=== PATIENT | male | born 1945 | race Caucasian/White ===

== ENCOUNTER 2020-03-22 14:02 | Inpatient (IN) | payer OTHER ==
[~2020-03-22] VITALS: Ht 170.2 cm; Wt 73.5 kg
--- NOTE | ~2020-03-22 | EEG ---
[facility] [place] [address] ELECTROENCEPHALOGRAM Name: MEKA YOUSIF Room #: 244-P [facility] IN M.R.#: [id number] Admission: 03/22/20 Attend Phys: Nicik Givens MD Discharge: 03/24/20 Date of : 49 Report #: [id number] THIS REPORT FOR: //name// CC: Nicki Michel DATE OF SERVICE: 03/23/2020 FINDINGS: This patient is being evaluated for the possibility of seizure. EEG was done by placing the electrodes by standard 10-20 system of electrode placement. Both referential and sequential montages were used for recording. Background activity in this patient's EEG is about 8-9 Hz and 30 microvolts. This patient went to sleep and that is associated with bilaterally symmetrical sleep spindle and vertex sharp waves. Photic stimulation is unremarkable. Throughout the record, no active epileptiform activity was noticed. IMPRESSION: This patient's EEG does not demonstrate any active epileptiform activity. It is intermixed with some theta range slowing on both sides. That is a nonspecific finding, which can occur with encephalopathy, effect of psychotropic medication, dementia, etc. Clinical correlation is recommended. Thank you very much for this referral. By: [id number] Luis E Cheema MD /nt
[~2020-03-22 14:02] MED LIST: ADULT LOW DOSE81 MG PO; BACTRIM DS TAB1 EACH PO; CIPROFLOXACIN500 M1 PO; MULTI COMPLETE1 EACH PO; PROTONIX40 M2 PO
[2020-03-22 14:35] LABS: URINE BILIRUBIN NEGATIVE (Negative); URINE BLOOD TRACE (Negative); URINE CLARITY CLEAR; URINE COLOR YELLOW; URINE GLUCOSE-RANDOM* NEGATIVE (Negative); URINE KETONES NEGATIVE (Negative); URINE LEUKOCYTES-REFLEX NEGATIVE (Negative); URINE NITRITE-REFLEX NEGATIVE (Negative); URINE PROTEIN (DIPSTICK) NEGATIVE (Negative); URINE SPECIFIC GRAVITY 1.025 (1.005-1.035); URINE UROBILINOGEN 0.2 E.U./dl (0.2-1.0)
[2020-03-22 14:36] LABS: HEMATOCRIT 47.2 % (42.0-52.0); HEMOGLOBIN 15.9 gm/dL (14.0-18.0); MCH 32.7 pg (26.0-34.0); MCHC 33.6 g/dL (28.0-37.0); MCV 97.3 fL (80.0-100.0); RBC 4.85 mil/uL (4.50-6.00); WBC 8.3 thou/uL (4.0-11.0)
[2020-03-22 14:45] LABS: ANION GAP 18 mmol/L (7-16); BUN 10 mg/dL (7-18); CALCIUM 8.9 mg/dL (8.5-10.1); CHLORIDE 103 mmol/L (98-107); CO2 21 mmol/L (21-32); CREATININE 1.4 mg/dL (0.7-1.3); GLUCOSE 196 mg/dL (74-106); POTASSIUM 3.3 mmol/L (3.5-5.1); SODIUM 142 mmol/L (136-145)
[2020-03-22 14:48] LABS: PROTIME 10.6 Seconds (9.3-11.4)
[2020-03-22 14:55] LABS: DIRECT BILIRUBIN < 0.1 mg/dL (<0.1-0.2); LIPASE 132 U/L (73-393); SGOT 22 U/L (15-37); SGPT 20 U/L (30-65); TOTAL BILIRUBIN 0.4 mg/dL (0.2-1.0); TOTAL PROTEIN 7.3 g/dL (6.4-8.2); TROPONIN-I <0.06 ng/mL (<0.06)
--- NOTE | 2020-03-22 15:36 | EKG ---
[facility] [place] [address] ELECTROCARDIOGRAM REPORT Name: MEKA YOUSIF Room #: REG M.R.#: [id number] Admission: 03/22/20 Attend Phys: Discharge: Date of : 49 Report #: [id number] THIS REPORT FOR: cc: Meredith Michel MD, Michelle R. MD Santiago, Patrick MD 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
[2020-03-22 16:21] LABS: AMP/METHAMP Negative (Negative); BARBITURATES Negative (Negative); BENZODIAZEPINES Negative (Negative); COCAINE Negative (Negative); METHADONE Negative (Negative); OPIATES Negative (Negative); PCP Negative (Negative)
[2020-03-22] MEDS ORDERED: FINASTERIDE5 MG PO (19:07)
[2020-03-22] MEDS ORDERED: BETHANECHOL CHL50 MG PO (19:08)
[2020-03-22] MEDS ORDERED: TAMSULOSIN HCL0.4 MG PO (19:14)
--- NOTE | 2020-03-22 19:36 | NUR ---
PT CALL PT'S , SHASHI, AT [phone] OR [phone] WITH ANY UPDATES.
[2020-03-22 21:04] LABS: MAGNESIUM 2.4 mg/dL (1.8-2.4); PHOSPHORUS 3.1 mg/dL (2.5-4.9)
[2020-03-22 21:31] LABS: FOLIC ACID 17.7 ng/mL (8.6-58.9)
[2020-03-23] VITALS (26 sets, daily range): BP systolic 130–154; BP diastolic 69–91
[2020-03-23 07:10] LABS: CALCIUM 8.2 mg/dL (8.5-10.1); CREATININE 1.2 mg/dL (0.7-1.3); POTASSIUM 3.7 mmol/L (3.5-5.1)
--- NOTE | 2020-03-23 07:42 | EKG ---
[facility] [place] [address] ELECTROCARDIOGRAM REPORT Name: MEKA YOUSIF Room #: 1708 ADM IN M.R.#: [id number] Admission: 03/22/20 Attend Phys: Nicki Givens MD Discharge: Date of : 49 Report #: [id number] THIS REPORT FOR: cc: Meredith Michel MD, Michelle R. 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[place] 1945 Requested By: Nicki Givens Order Number: [id number] MD: Lincoln Campbell Measurements Intervals [place] Rate: 63 P: 47 IN: 174 QRS: -67 QRSD: 147 T: -7 QT: 436 QTc: 447 Interpretive Statements Sinus rhythm Probable left atrial enlargement RBBB and LAFB Compared to ECG 03/22/2020 14:41:19 Atrial fibrillation no longer present Ventricular premature complex(es) no longer present Electronically Signed On 03-23-2020 7:41:45 CDT by Lincoln Campbell [email or web address] <ELECTRONICALLY SIGNED> By: Lincoln Campbell MD, FACC 03/23/20 0741 27 1728 Lincoln Campbell MD, FACC /EPI
--- NOTE | 2020-03-23 08:34 | NUR ---
Patient admitted to ICU room 244 from ED at 0815. Attached to air sampling and monitoring and pulse ox. BP cuff attached. Physical assessment completed. Patient is calm and cooperative. biomedical technician at bedside. Bed rails padded.
--- NOTE | 2020-03-23 14:30 | NUR ---
PATIENT TO MRI AND BACK VIA CART WITH LIFE P[employer]. SLIGHTLY NAUSEATED ENROUTE TO MRI, NO EMESIS.
--- NOTE | 2020-03-23 15:05 | NUR ---
chart review. report from bedside nurse. new to icu today. romulo at bedside, leda visited with her via phone call, . intro to cm and dcp. re reported we live in house, 1 step into house then no stairs. he is very active and independent. he manage own medication. he or i will make coffee in morning and split 1/2 banana then go lunch with neighbor. no rehab in past and no hh in past. no concerns about him drinking, i can control his drinking. pcp at [facility] medical office dr joe jack. have daughter in [place] and daughter in [place] per romulo. will cont following as needed for dc needs. discussed with hospitalist can dc thursday or over the weekend. no anticipated needs. dcp home with , no needs.
[2020-03-24] VITALS (13 sets, daily range): BP systolic 126–149; BP diastolic 72–89
--- NOTE | 2020-03-24 01:16 | NUR ---
PT IS ALERT AND ORIENTED X4. SIDE RAILS PADED NO SEIZURE ACTIVITY NOTED THROUGH THE NIGHT. LUNGS ARE CLEAR TO DIMINISHED ON ROOM AIR. VOIDS PER URINAL AND BOWEL MOVEMENT TOO ON BED BEJARANO NOTED. ADOMEN IS ROUND SOFT BOWEL SOUNDS ACTIVE X4. FORGETFULL AT TIMES REORIENTED AT TIMES WITH HOSPITALIATION. CIWA WITH ETOH USE IS ONLY A 4. NO ISSUES OR CONERNS NOTED AT THIS TIME. WILL CONTINUE TO ASSESS AND MONITOR PER NURSING.
[2020-03-24 04:49] LABS: CALCIUM 8.6 mg/dL (8.5-10.1); MAGNESIUM 2.3 mg/dL (1.8-2.4); PHOSPHORUS 3.3 mg/dL (2.5-4.9); POTASSIUM 3.5 mmol/L (3.5-5.1)
[2020-03-24] MEDS ORDERED: KEPPRA 500 MG500 MG PO (15:45)
[2020-03-24] MEDS ORDERED: MIRALAX17 GM PO (15:46)
[2020-03-24] MEDS ORDERED: FLONASE 0.05%50 MCG NASAL (15:46)
[2020-03-24] MEDS ORDERED: VITAMIN B-1100 M2 PO (15:47)
[2020-03-24] MEDS ORDERED: PROTONIX 20 MG20 M1 PO (15:47)
[2020-03-24] MEDS ORDERED: AZITHROMYCIN500 MG PO (15:55)
--- NOTE | 2020-03-24 17:19 | NUR ---
ASSUMED CARE OF PT AT 0700. PT AOX3 IN NO ACUTE DISTRESS. VOICING NO COMPLAINTS OR CONCERNS. PT AND OT [facility]. ORTHOSTATICS UNREMARKABLE. VITALS STABLE. WAITING ON TRANSPORT FOR DISCHARGE.
== END 2020-03-24 18:05 | disposition home health service (06) | DRG 100 ==
LOC: ER 14:02 → EROBS 19:50 → ICU 19:50
PROVIDERS: Emergency Medicine; Nurse Practitioner Family; ADMIT Hospitalist; ATTEND Hospitalist
DX: G40.89 Other seizures (principal); G93.41 Metabolic encephalopathy; N17.0 Acute kidney failure with tubular necrosis; G93.40 Encephalopathy, unspecified; I10 Essential (primary) hypertension; F03.90 Unspecified dementia, unspecified severity, without behavioral disturbance, psychotic disturbance, mood disturbance, and anxiety; F10.20 Alcohol dependence, uncomplicated; K21.9 Gastro-esophageal reflux disease without esophagitis; D64.9 Anemia, unspecified; Y90.9 Presence of alcohol in blood, level not specified; N40.0 Benign prostatic hyperplasia without lower urinary tract symptoms; Z20.828 Contact with and (suspected) exposure to other viral communicable diseases; Z79.899 Other long term (current) drug therapy; Z79.82 Long term (current) use of aspirin; Z28.21 Immunization not carried out because of patient refusal
CPT/HCPCS: 10196